=== PATIENT | male | born 1950 | race Two or more races ===

== ENCOUNTER 2025-09-15 11:43 | Emergency (ER) | payer OTHER ==
[~2025-09-15] VITALS: Ht 185.4 cm; Wt 83.9 kg
[2025-09-15] MEDS ORDERED: EZALLOR SPRINKLE5 MG PO (13:12)
[2025-09-15] MEDS ORDERED: PROAIR RESPICL90 MCG IH (13:13)
[2025-09-15] MEDS ORDERED: SPIRIVA HANDIH18 MCG IH (13:13)
[2025-09-15] MEDS ORDERED: PANTOPRAZO40 MG/50 M IV (13:13)
[2025-09-15] MEDS ORDERED: GRALISE600 MG PO (13:13)
[2025-09-15] MEDS ORDERED: ONDANSETRON HCL 2 MG/ML VIAL ONE (14:29)
[2025-09-15] MEDS ORDERED: FAMOTIDINE/PF 20 MG/2 ML VIAL ONE (14:29)
[2025-09-15] MEDS ORDERED: 0.9 % SODIUM CHLORIDE 500 ML IV ONE (14:30)
[2025-09-15] MEDS ORDERED: ONDANSETRON HCL 2 MG/ML VIAL IV ONE (14:30)
[2025-09-15] MEDS ORDERED: FAMOTIDINE/PF 20 MG/2 ML VIAL IV ONE (14:30)
[2025-09-15 14:49] LABS: BASO % 0.2 % (0.1-1.2); EOS # 0.06 (0.04-0.54); EOS % 0.5 % (0.7-7.0); LYMPH # 1.12 (1.18-3.74); LYMPH % 9.5 % (19.3-53.1); MEAN PLATELET VOLUME 9.50 fl (9.4-12.4); MONO # 1.04 (0.24-0.82); MONO % 8.9 % (4.7-12.5); NEUT # 9.46 (1.56-6.13); NEUT % 80.6 % (34.0-71.1); RED CELL DISTRIBUTION WIDTH 13.4 % (11.6-14.4)
[2025-09-15 15:19] LABS: ALT/SGPT 41.0 U/L (12-78); AST/SGOT 37.0 U/L (15-37); BILIRUBIN TOTAL 0.95 mg/dL (0.3-1.2); BUN CREA RATIO 16.0 (7.0-25.0); CREATININE SERUM 1.47 mg/dL (0.70-1.30); GFR 46.7; GLOBULINA 4.6 G/DL (2.4-3.5); GLUCOSE FASTING 130.0 mg/dL (65-100); OSMOLALITY SERUM 285.0 MOSM/KG (275-295)
[2025-09-15 15:33] LABS: URINE APPEARANCE Clear; URINE BILIRRUBIN Negative (NEGATIVE); URINE BLOOD Negative; URINE COLOR Dark Yellow; URINE GLUCOSE Negative (NEGATIVE); URINE KETONE Trace (NEGATIVE); URINE LEUKOCYTE Negative; URINE NITRATE Negative; URINE PROTEIN Trace (NEGATIVE); URINE UROBILINOGEN 1.0 E.U./dl
[2025-09-15 15:38] LABS: URINE BACTERIA 17.9 uL (0.0-1933); URINE CAST 1.46 uL (0.0-1.40); URINE EPITHELIAL CELLS 10.9 uL (0.0-38.8); URINE RBC 3.9 uL (0.0-20.8); URINE WBC 7.5 uL (0.0-23.2)
[2025-09-15 15:52] LABS: COVID-19 AG NEGATIVE (NEGATIVE)
[2025-09-15] MEDS ORDERED: ONDANSETRON ODT4 MG PO (16:57)
[2025-09-15] MEDS ORDERED: MIRALAX17 GM PO (16:57)
== END 2025-09-15 17:50 ==
LOC: ER 11:43
PROVIDERS: General Practice
DX: K59.00 Constipation, unspecified (principal); R10.9 Unspecified abdominal pain; R11.2 Nausea with vomiting, unspecified; R11.10 Vomiting, unspecified; Z20.822 Contact with and (suspected) exposure to COVID-19
CPT/HCPCS: 36415; 71046; 74176; 96365; 96366; 99284; J2405; J3490; J7030